=== PATIENT | male | born 1965 | race Caucasian/White ===

== ENCOUNTER 2016-12-21 06:20 | Day surgery (SDC) | payer OTHER ==
[2016-12-20 10:09] LABS: HEMOGLOBIN 15.5 g/dL (13.6-17.8)
[2016-12-20 10:29] LABS: A/G RATIO 1.1 (0.7-1.9); ALKALINE PHOSPHATASE 66 U/L (45-117); CALCIUM, SERUM 8.9 MG/DL (8.5-10.4); CHLORIDE, SERUM 105 MMOL/L (96-112); CO2 (CARBON DIOXIDE) 26 MMOL/L (24-34); CREATININE 1.02 MG/DL (0.70-1.30); GFR AFRICAN AMERICAN 97 ML/MIN (>=60); GFR NON AFRICAN AMERICAN 84 ML/MIN (>=60); GLOBULIN 3.5 G/DL (2.5-4.1); GLUCOSE, SERUM 202 MG/DL (60-99); POTASSIUM, SERUM 4.3 MMOL/L (3.5-5.3); SGOT(AST) 27 U/L (5-40); SGPT(ALT) 45 U/L (5-65); SODIUM, SERUM 140 MMOL/L (135-148); TOTAL BILIRUBIN 0.6 MG/DL (0-1.2); TOTAL PROTEIN 7.5 G/DL (6.0-8.5)
[2016-12-20 10:30] LABS: BUN (BLOOD UREA NITROGEN) 13 MG/DL (6-23)
--- NOTE | ~2016-12-21 | OP ---
Record Of Operation [facility] [address] [place]. [address] NAME: LATOYA GARCIA : 61 STATUS : [facility]#: [id number] AGE: 51 ADM/REG DATE : 12/21/16 MR#: [id number] REPORT SERV DATE: 12/21/16 DICTATED BY: JERAMIE URIBE DATE: 12/21/16 REPORT STATUS : Draft TRANSCRIBED BY: [place] DATE: 12/21/16 DATE OF PROCEDURE: PREOPERATIVE DIAGNOSES: 1. Symptomatic biliary colic with gallbladder ejection fraction of 1% without obstruction. 2. Reducible umbilical hernia. 3. Nicotine dependence. 4. Diabetes mellitus type 2. 5. Obesity with BMI of 35.4. POSTOPERATIVE DIAGNOSES: 1. Symptomatic biliary colic with gallbladder ejection fraction of 1% without obstruction. 2. Reducible umbilical hernia. 3. Nicotine dependence. 4. Diabetes mellitus type 2. 5. Obesity with BMI of 35.4. PROCEDURES: 1. Laparoscopic cholecystectomy. 2. Primary repair of reducible umbilical hernia. ANESTHESIA: General. FRESH WORK INSPECTOR: Franck. COMPLICATIONS: None. DRAINS: None. ESTIMATED BLOOD LOSS: 20 mL. FINDINGS: 1. The patient was noted to have a thickened gallbladder wall with contraction of the gallbladder consistent with chronic acalculous cholecystitis. 2. The patient was noted to have a small reducible umbilical hernia with some preperitoneal fat reduced from the defect. OPERATIVE TECHNIQUE: The patient was brought to the operating room, placed on the table in supine position. He had preoperative IV antibiotics. He had sequential hose in place. He voided prior to the procedure. He underwent general endotracheal anesthesia, and was prepped and draped in sterile fashion, and a time-out was completed. Local anesthesia was instilled to the periumbilical skin. A 15 blade knife was used to make incision through the base of the umbilicus over the hernia sac. The incision was carried circumferentially around the incarcerated preperitoneal fat and the hernia sac down to the level of the fascia. This was then divided and flushed with electrocautery, and the defect was identified. It was approximately 10 mm. The finger was inserted in the abdomen. There was Record Of Operation [facility] [address] [place]. [address] NAME: LATOYA GARCIA FLORY : 61 STATUS : REG [facility] PAT#: [id number] AGE: 51 ADM/REG DATE : 12/21/16 MR#: [id number] REPORT SERV DATE: 12/21/16 DICTATED BY: JERAMIE URIBE DATE: 12/21/16 REPORT STATUS : Draft TRANSCRIBED BY: MODL DATE: 12/21/16 no evidence of any other hernias or adhesions. The Veress needle was used initially, and with the leak the 11 mm trocar was inserted directly without a blade into the abdomen, and 15 mm of pneumoperitoneum was obtained. The laparoscope was inserted. There was no evidence of Veress or trocar injury. He was then placed in reverse Trendelenburg, and rolled to the left. An 11 mm subxiphoid and two 5 mm right upper quadrant trocars were placed under direct visualization. The gallbladder fundus was grasped and elevated over the liver edge. The patient had some adhesions of the omentum to the gallbladder, and these were taken down using blunt dissection till the infundibulum was identified. The cystic duct gallbladder junction was then retracted inferolaterally. The cystic duct was then circumferentially dissected using blunt dissection, dissection more medial revealed the cystic artery. After both structures were bluntly dissected and seen circumferentially in 360 degrees, they were clipped twice proximally and distally, and divided between the clips. The cystic duct clips were noted to be higher on the gallbladder wall, and for this reason, an additional Endoloop was placed just beneath the two previously placed clips under direct visualization. At this point, the gallbladder was removed from the fossa using the electrocautery hook and extracted through the umbilicus. The laparoscope and trocar were reinserted. Examination of the hepatic fossa noted to be hemostatic. The clips were noted to be intact without encroachment of the common bile duct. There was no evidence of any bleeding, biliary spillage, or other visual abnormalities. At this juncture, all the instruments and trocars were removed under direct visualization as the pneumoperitoneum was aspirated. The umbilical fascia was then reapproximated tension-free to include the umbilical hernia with a running 0 Vicryl suture. The skin edges were reapproximated using interrupted subcuticular Monocryl sutures. Dermabond was applied. He was extubated and taken to the recovery room in stable condition. All sponge and needle counts reported correct. KRISTA/MODL Jeramie Uribe M.D. / [id number] CC: Thalia Saucedo MD
[~2016-12-21 06:20] MED LIST: AMARYL4 PO; AMITIZA24 PO; COZ25 PO; FLEX PO; GLUCOPHAGE1000 MG PO; NEUR300 PO; PRILOSEC40 MG PO; ZANTAC150 MG PO
== END 2016-12-21 14:14 | disposition home or self-care (01) ==
LOC: SDC 06:20
PROVIDERS: Surgery
PROC: 0FT44ZZ Resection of Gallbladder, Percutaneous Endoscopic Approach (ICD-10-PCS; principal; 2016-12-21 07:45)
PROC: 0WQF4ZZ Repair Abdominal Wall, Percutaneous Endoscopic Approach (ICD-10-PCS; 2016-12-21 07:45)
DX: K81.1 Chronic cholecystitis (principal); E11.9 Type 2 diabetes mellitus without complications; K42.9 Umbilical hernia without obstruction or gangrene; F17.210 Nicotine dependence, cigarettes, uncomplicated; E66.9 Obesity, unspecified; Z68.35 Body mass index [BMI] 35.0-35.9, adult; K58.9 Irritable bowel syndrome, unspecified; Z79.899 Other long term (current) drug therapy; Z79.84 Long term (current) use of oral hypoglycemic drugs; R06.02 Shortness of breath; J40 Bronchitis, not specified as acute or chronic; G57.90 Unspecified mononeuropathy of unspecified lower limb; H91.90 Unspecified hearing loss, unspecified ear
CPT/HCPCS: 80053; 82962; 85014; 85018; 87641; 88304; 93005; A9270-GY; J0690; J0735; J1885; J2175; J2250; J2405; J2550; J2710; J3010; Q9967